=== PATIENT | female | born 1955 | race Caucasian/White ===

== ENCOUNTER → 2019-11-26 11:53 | Outpatient (BNVA) | payer MEDICARE, MEDICAID, SELFPAY | PROVIDERS: Family Provider Family Medicine; PCP Family Medicine; Visit Provider Orthopaedic Surgery | DX: M25.512 Pain in left shoulder (principal) | CPT/HCPCS: 73030 ==

== ENCOUNTER → 2019-12-10 17:08 | Outpatient (BNVA) | payer MEDICARE, MEDICAID, SELFPAY | PROVIDERS: Family Provider Family Medicine; PCP Family Medicine; Visit Provider Family Medicine | DX: R53.83 Other fatigue (principal); Z13.1 Encounter for screening for diabetes mellitus; R63.1 Polydipsia; J44.9 Chronic obstructive pulmonary disease, unspecified; Z13.220 Encounter for screening for lipoid disorders; Z13.6 Encounter for screening for cardiovascular disorders; M79.7 Fibromyalgia; F32.9 Major depressive disorder, single episode, unspecified; G47.00 Insomnia, unspecified; M19.012 Primary osteoarthritis, left shoulder; F33.1 Major depressive disorder, recurrent, moderate; F51.04 Psychophysiologic insomnia | CPT/HCPCS: 80053; 80061; 82607; 83036; 85025 ==

== ENCOUNTER → 2020-02-25 00:01 | Outpatient (BNVA) | payer MEDICARE, MEDICAID, SELFPAY | PROVIDERS: Family Provider Family Medicine; PCP Family Medicine; Visit Provider Family Medicine | DX: E78.2 Mixed hyperlipidemia (principal); G47.00 Insomnia, unspecified; E03.9 Hypothyroidism, unspecified; I10 Essential (primary) hypertension; K21.9 Gastro-esophageal reflux disease without esophagitis; R06.02 Shortness of breath; F33.1 Major depressive disorder, recurrent, moderate | CPT/HCPCS: 80048; 83735; 84439; 84443; 84481 ==

== ENCOUNTER → 2020-06-08 10:55 | Outpatient (BNVA) | payer MEDICARE, MEDICAID, SELFPAY | PROVIDERS: Family Provider Family Medicine; PCP Family Medicine; Visit Provider Internal Medicine | DX: Z11.59 Encounter for screening for other viral diseases (principal) | CPT/HCPCS: 87635 ==

== ENCOUNTER 2020-06-10 11:57 | Day surgery (SDC) | payer MEDICARE, MEDICAID, SELFPAY ==
[2020-06-09 14:00] VITALS: BMI 29.0
[2020-06-10] VITALS (8 sets, daily range): BP systolic 133–148; BP diastolic 72–110; PULSE 62–116; RESP 14–20; TEMP 36.1–36.4; O2SAT 94–100
--- NOTE | 2020-06-10 12:29 | ANES.PREANE2 ---
Pre-Anesthetic Assessment Pre-Anesthetic Assessment: Height/Weight: Height 1.63 m Weight 76.657 kg Temp Pulse Resp BP Pulse Ox 97.6 F 68 18 148/110 98 06/10/20 12:06 06/10/20 12:06 06/10/20 12:06 06/10/20 12:06 06/10/20 12:06 Preop Diagnosis: Partial-thickness tear left rotator cuff, Proposed Procedure: Operation Date: 06/10/20 13:30 Proposed Procedures p Shoulder Arthroscopy with subacromial decompression [id number] M75.111 M19.012(Left) - Rohit Gonzalez MD s Distal Clavicle Excision(Left) - Rohit Gonzalez MD s Poss Rotator Cuff Repair(Left) - Rohit Gonzalez MD Familial anesthetic complications: none Last intake: Intake NPO > 8 hrs, water at 0900 Last Liquid Date 06/09/20 Last Solid Date 06/09/20 Social: Social History: No alcohol and No tobacco Exam: Pre-Anes Outpt Exam: alert, oriented x 3, clear to auscultation bilaterally and regular rate & rhythm Airway: Cervical ROM: WNL MP: 2 Dentition: False and Full Pulmonary: Pulmonary: Sleep apnea GI: GI: GERD Metabolic: Metabolic: Hyperlipidemia Neuropsych: Neuropsych: None reported Anesthetic Plan: ASA status: 2 Anesthesia: General and Regional (specify below) Risk of > 500 ml blood loss (7ml/kg in children): No PFSH Anesthesia PFSH: Medical History (Updated 05/28/20 @ 14:22 by Rohit Gonzalez MD) Basal cell carcinoma (BCC) Fibromyalgia GERD (gastroesophageal reflux disease) History of breast cancer Insomnia Lumbar disc disease with radiculopathy Major depressive disorder Mixed hyperlipidemia Post laminectomy syndrome Post-menopausal Spondylosis without myelopathy or radiculopathy Surgical History History of appendectomy History of back surgery Hx of lumpectomy Ovarian cyst rupture Family History Other Cancer Diabetes Heart attack Heart disease Lung disease Stroke Social History Smoking and tobacco status: former smoker Alcohol intake: former Data Anesthesia Cardiac Studies: No Data to Display
--- NOTE | 2020-06-10 12:36 | W.PM.OPSUD ---
Surgery/Procedure H&P Update DATE OF PROCEDURE: June 10, 2020 DATE H&P PERFORMED: 05/28/20 PREOP DIAGNOSIS: Partial-thickness tear left rotator cuff, PLANNED PROCEDURE: Operation Date: 06/10/20 13:30 Proposed Procedures p Shoulder Arthroscopy with subacromial decompression [id number] M75.111 M19.012(Left) - MD maximiliano Salazar Distal Clavicle Excision(Left) - MD maximiliano Salazar Poss Rotator Cuff Repair(Left) - Rohit Gonzalez MD
--- NOTE | 2020-06-10 12:53 | ANES.PROC ---
Anesthesia Procedures Procedure/Date: 06/10/20 Nerve Block ^: Nerve Block 1: Main Anesthesia: general anesthesia Time Out Performed: Yes Consent: requested by attending/covering physician, from patient, risks and benefits reviewed and patient agrees to proceed Nerve block location: interscalene (L) Anesthesia monitors applied: pulse oximetry and BP cuff Nerve block position: semi sitting Anesthetic Used: ropivicaine 0.5% and with decadron (4 mg) Amount of anesthesia used (mL): 30 Ultrasound used to: recognize landmarks and visualize and ID interscalene groove Interscalene/Femoral BLK: 2 stimuplex 22 g needle used for position and inplane approach Injection: neg aspiration of heme Patient Tolerated Procedure: well Complications: none
[2020-06-10] MEDS: sodium chloride 0.9% 1,000 ML 30 ML IV (13:00)
--- NOTE | 2020-06-10 14:23 | P.OP_ITS ---
Operative Report Date of procedure: June 10, 2020 Pre-op Diagnosis: Partial-thickness tear left rotator cuff, Post-op diagnosis: other (Left shoulder impingement, degenerative joint disease left acromioclavicular joint, low-grade partial-thickness tear left rotator cuff, degenerative tearing anterior superior and posterior labrum) Post-op Findings: Same Procedure Done: Arthroscopic debridement anterior superior and posterior labral tears, subacromial decompression, distal clavicle excision Pathology: none sent Surgeon: Rohit Gonzalez Anesthesia: General and Nerve Block (Interscalene block) Estimated blood loss (mL): 20 Complications: None Findings: The patient had degenerative tearing of her anterior superior and posterior labrum but he reasonable biceps attachment. The biceps appeared hea lthy. She had generalized softening and fissures over her glenoid but no exposed subchondral bone. She had degenerative undersurface tearing involving perhaps 15 to 20% of the articular side of the cuff in the watershed zone. No corresponding bursal tearing was identified. She had prominent anterior subacromial spurring. She had degenerative changes in spurs of the distal clavicle. Condition: stable Disposition: PACU Procedure: The patient was taken to the operating room after she was given an interscalene block. She was prepped and draped in the supine position with her left shoulder and 10 pounds of traction. A timeout was performed. A posterior portal was made 2 cm inferior medial to the posterior corner of the acromion. The scope cannula and trocar were driven into the glenohumeral joint. An 8 mm inflow cannula was placed anteriorly. Diagnostic portion arthroscopy was performed. Initially an incisor shaver was introduced debriding the superior anterior and posterior labrum. The rhythm was then cleaned up with the [employer]olf probe leaving stable labral tissue. The biceps tendon was pulled into the wound and found to be healthy. Generalized chondromalacia was identified over the glenoid but no unstable flaps and fissures were present to benefit from debridement. There was dysvascular degenerative appearance to the central supraspinatus and the area posterior to the bicipital groove but the tearing involves less than 20% of the thickness of the tendon was not thought to benefit from debridement. The scope was then moved to the subacromial space. A lateral portal was opened up with a scalpel blade. An incisor shaver and [employer] Werewolf probe was used to remove bursal tissue and outlined the leading edge of acromion and the distal edge of the clavicle. A 5.5 mm acromionizer was introduced laterally and approximately 5 mm of anterior and inferior acromion removed converting the acromion to type I morphology. The acromionizer was then moved to the anterior portal. Approximately 8 mm of distal clavicle were excised. Hemostasis was accomplished with the [employer]rewolf probe arthroscopy equipment was removed. Portals were closed with 3-0 Prolene. Sterile dressings were applied. The patient was placed in a sling, extubated, and taken to recovery room in stable condition.
== END 2020-06-10 15:42 | disposition home or self-care (01) ==
PROVIDERS: Family Provider Family Medicine; PCP Family Medicine; Visit Provider Orthopaedic Surgery
PROC: (CPT 29805; principal; 2020-06-10 13:30)
PROC: (CPT 23120; 2020-06-10 13:30)
DX: M75.102 Unspecified rotator cuff tear or rupture of left shoulder, not specified as traumatic (principal); M25.812 Other specified joint disorders, left shoulder; M19.012 Primary osteoarthritis, left shoulder; G47.33 Obstructive sleep apnea (adult) (pediatric); E78.5 Hyperlipidemia, unspecified; M79.7 Fibromyalgia; Z85.3 Personal history of malignant neoplasm of breast; E78.2 Mixed hyperlipidemia; Z87.891 Personal history of nicotine dependence
CPT/HCPCS: 23120; 29822; 12345; 96374; J0690; J1100; J2405; J2704; J2710; J2795; J3010; J3490; J7030

== ENCOUNTER 2020-07-21 13:00 | Outpatient (RCR) | payer MEDICARE, MEDICAID, SELFPAY | END 2020-08-05 23:59 | disposition home or self-care (01) | LOC: MPT 13:00 | PROVIDERS: PCP Family Medicine; Referring Provider Orthopaedic Surgery; Visit Provider Orthopaedic Surgery | DX: Z98.890 Other specified postprocedural states (principal) | CPT/HCPCS: 97110; 97140; 97161; 97530 ==

== ENCOUNTER → 2020-07-30 12:11 | Outpatient (BNVA) | payer MEDICARE, MEDICAID, SELFPAY | PROVIDERS: PCP Family Medicine; Visit Provider Family Medicine | DX: R35.0 Frequency of micturition (principal); R11.0 Nausea | CPT/HCPCS: 81000 ==

== ENCOUNTER 2020-08-06 06:00 | Outpatient (RCR) | payer MEDICARE, MEDICAID, SELFPAY | END 2020-09-05 23:59 | disposition home or self-care (01) | LOC: MPT 06:00 | PROVIDERS: PCP Family Medicine; Referring Provider Orthopaedic Surgery; Visit Provider Orthopaedic Surgery | DX: Z47.89 Encounter for other orthopedic aftercare (principal) | CPT/HCPCS: 97110; 97140 ==

== ENCOUNTER 2020-12-28 10:13 | Outpatient (CLI) | payer MEDICARE, MEDICAID, SELFPAY ==
--- NOTE | 2020-12-28 10:21 | MM_ITS ---
WS: [id number] DIAGNOSTIC BILATERAL DIGITAL MAMMOGRAM WITH CAD Bilateral breast ultrasound, limited HISTORY: HX OF BREAST CA;RT LOWER BREAST FIRMNESS COMPARISON: 07/07/2015, 12/27/2013, ultrasound 05/31/2012 TECHNIQUE: Bilateral craniocaudad, mediolateral oblique, and mediolateral views are submitted. Spot c ompression RIGHT and LEFT CC and MLO projections. Computer aided detection utilized. Breast composition: There are scattered areas of fibroglandular density. Volume loss and postsurgical changes in the upper-outer quadrant of the RIGHT breast. Dystrophic calc ifications and skin thickening. Increasing calcification at the surgical site. The soft tissue mobile phlebotomist ior to this calcification was also present on the prior study. Increasing size of the ovoid nodule measuring 12 x 13 mm in the LEFT breast near 3:00. This nodule hall s been present on prior studies but increasing in size. Bilateral breast ultrasound, limited. RIGHT breast: No abnormality is identified. Ultrasound is directed to the area of pain as per the pat ient. LEFT breast: At 4:00, 3 cm from the nipple is an ovoid cyst measuring 1.4 x 1.0 x 0.4 cm. This corres ponds to the abnormal abnormality seen by mammography. MM/[place] [id number] IMPRESSION: BI-RADS: 2-Benign FOLLOW UP: 1 Year Follow-up
--- NOTE | 2020-12-28 15:12 | US_ITS ---
WS: [id number] DIAGNOSTIC BILATERAL DIGITAL MAMMOGRAM WITH CAD Bilateral breast ultrasound, limited HISTORY: HX OF BREAST CA;RT LOWER BREAST FIRMNESS COMPARISON: 07/07/2015, 12/27/2013, ultrasound 05/31/2012 TECHNIQUE: Bilateral craniocaudad, mediolateral oblique, and mediolateral views are submitted. Spot c ompression RIGHT and LEFT CC and MLO projections. Computer aided detection utilized. Breast composition: There are scattered areas of fibroglandular density. Volume loss and postsurgical changes in the upper-outer quadrant of the RIGHT breast. Dystrophic calc ifications and skin thickening. Increasing calcification at the surgical site. The soft tissue screen repairer crusher ior to this calcification was also present on the prior study. Increasing size of the ovoid nodule measuring 12 x 13 mm in the LEFT breast near 3:00. This nodule hall s been present on prior studies but increasing in size. Bilateral breast ultrasound, limited. RIGHT breast: No abnormality is identified. Ultrasound is directed to the area of pain as per the pat ient. LEFT breast: At 4:00, 3 cm from the nipple is an ovoid cyst measuring 1.4 x 1.0 x 0.4 cm. This corres ponds to the abnormal abnormality seen by mammography. US/US breast BI limited* [id number] IMPRESSION: BI-RADS: 2-Benign FOLLOW UP: 1 Year Follow-up
== END 2020-12-28 10:14 | disposition home or self-care (01) ==
PROVIDERS: PCP Family Medicine; Visit Provider Family Medicine
DX: R20.0 Anesthesia of skin (principal); R20.2 Paresthesia of skin; M25.512 Pain in left shoulder; G89.29 Other chronic pain; Z87.891 Personal history of nicotine dependence; Z85.3 Personal history of malignant neoplasm of breast
CPT/HCPCS: 76642; 77066; 95886; 95908; 99202

== ENCOUNTER → 2021-01-07 00:01 | Outpatient (BNVA) | payer MEDICARE, MEDICAID, SELFPAY | PROVIDERS: PCP Family Medicine; Visit Provider Family Medicine | DX: Z11.59 Encounter for screening for other viral diseases (principal); E78.2 Mixed hyperlipidemia; Z13.1 Encounter for screening for diabetes mellitus; L57.0 Actinic keratosis | CPT/HCPCS: 80053; 80061; 86706; 86803; 87340 ==